=== PATIENT | male | born 1995 | race Caucasian/White ===

== ENCOUNTER 2019-01-06 14:29 | Emergency (ER) | payer SELFPAY ==
[2019-01-06] MEDS ORDERED: Ketorolac Tromethamine 60 MG/2 ML VIAL ONE (14:49)
[2019-01-06] MEDS ORDERED: Cyclobenzaprine 10 MG TAB ONE (14:49)
== END 2019-01-06 14:59 | disposition home or self-care (01) ==
LOC: BURERS 14:29
DX: M54.5 Low back pain (principal); I10 Essential (primary) hypertension; F17.210 Nicotine dependence, cigarettes, uncomplicated
CPT/HCPCS: 96372; J1885